=== PATIENT | male | born 1980 | race Caucasian/White ===

== ENCOUNTER 2022-05-19 04:35 | Emergency (ER) | payer SELFPAY ==
[~2022-05-19] VITALS: Ht 182.9 cm; Wt 122.5 kg
--- NOTE | 2022-05-19 05:00 | NUR ---
EMT AT PT'S BEDSIDE FOR EKG
--- NOTE | 2022-05-19 05:05 | NUR ---
BIBS FOR A NON- WITHNESSED SYNCOPAL EPISODE AT HOME. PATIENT CLAIMED IT STARTED 6PM LAST NIGHT. HE CANNOT DESCRIBED HOW HE FEELS AT THE MOMENT BUT HE IS COMPLAINING OF HEADACHE SCALE OF 5/10. PATIENT IS AA0X4. ABLE TO MAKE NEEDS KNOWN. ATTACHED TO MONITOR. VITALS CHECKED. NEURO ASSESSMENT DONE. NO DEFICIT NOTED.
--- NOTE | 2022-05-19 05:20 | NUR ---
IV CANNULA G18 INSERTED ON LEFT AC. BLOOD DRAWN AND SENT TO LAB
--- NOTE | 2022-05-19 05:20 | NUR ---
EKG DONE AT BEDSIDE
--- NOTE | 2022-05-19 05:20 | NUR ---
GLUCOSE CHECKED 128mg/dl. MADE AWARE
--- NOTE | 2022-05-19 05:27 | NUR ---
PATIENT REFUSED XRAY AND CT SCAN. RISK AND BENEFITS EXPLAINED BUT STILL REFUSED. AWARE.
[2022-05-19 05:57] LABS: HEMATOCRIT 45 % (39-51); HEMOGLOBIN 15.2 g/dL (13.5-17.5); MEAN CORPUSCULAR VOLUME 82 fL (80-96)
[2022-05-19 05:58] LABS: BASOPHILS % (AUTO) 0.6 % (0.0-2.0); EOSINOPHILS % (AUTO) 1.5 % (0.0-6.0); LYMPHOCYTES # (AUTO) 2.3 K/uL (0.8-4.8); LYMPHOCYTES % (AUTO) 29.1 % (20.0-44.0); MEAN CORPUSCULAR HGB CONC 34 g/dl (31.0-36.0); MONOCYTES # (AUTO) 0.6 K/uL (0.1-1.30); MONOCYTES % (AUTO) 7.1 % (2.0-12.0); NEUTROPHILS # (AUTO) 4.9 K/uL (1.8-8.9); NEUTROPHILS % (AUTO) 61.7 % (43.0-81.0); PLATELET COUNT (AUTO) 325 K/uL (150-450)
[2022-05-19 06:13] LABS: ALANINE AMINOTRANSFERASE 40 U/L (12-78); ALBUMIN 3.8 g/dL (3.4-5.0); ALKALINE PHOSPHATASE 50 U/L (46-116); ASPARTATE AMINOTRANSFERASE 23 U/L (15-37); BILIRUBIN,DIRECT 0.1 mg/dL (0.0-0.2); BILIRUBIN,TOTAL 0.4 mg/dL (0.2-1.0); CALCIUM, SERUM 8.9 mg/dL (8.5-10.1); CARBON DIOXIDE 28 mmol/L (21-32); CHLORIDE 100 mmol/L (98-107); GLUCOSE 128 mg/dL (74-106); SODIUM SERUM 137 mmol/L (136-145); TOTAL PROTEIN, SERUM 7.9 g/dL (6.4-8.2); UREA NITROGEN, BLOOD 14 mg/dL (7-18)
[2022-05-19] MEDS ORDERED: ACETAMINOPHEN ES 500 MG TABLET ONE (06:28)
[2022-05-19] MEDS ORDERED: IV NS 0.9% 1,000 ML IV ONE (06:30)
[2022-05-19] MEDS ORDERED: ACETAMINOPHEN 325 MG TABLET PO ONE (06:30)
[2022-05-19] MEDS ORDERED: POTASSIUM CHLORIDE 20 MEQ TAB.PRT.SR PO ONE ×2 (07:00→07:01)
--- NOTE | 2022-05-19 07:23 | NUR ---
COVID AND INFLUENZA SWAB COLLECTED AND SENT TO LAB.
--- NOTE | 2022-05-19 07:32 | NUR ---
REPORT GIVEN TO RADHA HATCH.
--- NOTE | 2022-05-19 07:50 | NUR ---
PHLEB AT BEDSIDE FOR BLOOD DRAW. PT REQUESTED FOR LIGHTS TO BE OFF IN HIS ROOM. PT A/OX4, ABLE TO MAKE NEEDS KNOWN, NOT IN ACUTE DISTRESS.
--- NOTE | 2022-05-19 08:18 | NUR ---
PT REFUSED 2ND TYPE AND SCREEN DRAW; EXPLAINED RISKS AND BENEFITS OF REFUSAL TO PT, VERBALIZED UNDERSTANDING. ALSO VERBALIZES THAT HE WANTS TO GO HOME ALREADY. DR JAIMES MADE AWARE.
--- NOTE | 2022-05-19 08:38 | NUR ---
IV removed. Catheter intact and site benign. Pressure and 4x4 applied to site. No bleeding noted.
--- NOTE | 2022-05-19 08:42 | NUR ---
Patient discharged to home in stable condition. Written and verbal after care instructions given. Patient verbalizes understanding of instruction.
[2022-05-19 08:43] VITALS: BP 143/90
[2022-05-19 09:39] LABS: LYMPHOCYTES % (MANUAL) 25 % (16-48); MONOCYTES % (MANUAL) 7 % (0-11.0); NEUTROPHILS % (MANUAL) 64 (42-76)
[2022-05-19 09:40] LABS: EOSINOPHILS % (MANUAL) 4 % (0-4)
== END 2022-05-19 08:44 | disposition home or self-care (01) ==
LOC: ER 04:38
DX: R53.1 Weakness (principal); R03.0 Elevated blood-pressure reading, without diagnosis of hypertension; Z20.822 Contact with and (suspected) exposure to COVID-19
CPT/HCPCS: 99284; 96360; 87426; 93005; 87804; 85025; 80048; 80076; 83735; 36415; 84484 ×2; 85730; 86850; 82962; 85007; J7030; C9803